=== PATIENT | female | born 2000 | race Caucasian/White ===

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

== ENCOUNTER 2021-02-07 12:16 | Emergency (ER) | payer OTHER, SELFPAY ==
[2021-02-07 12:30] VITALS: BP 104/54; PULSE 81; RESP 16; TEMP 36.8; O2SAT 96; BMI 27.4
[2021-02-07 13:17] LABS: COVID-19 Test Negative (Negative)
--- NOTE | 2021-02-07 15:15 | ED_ITS ---
HPI - URI/Sore Throat General Chief Complaint: Upper Respiratory Symptoms Stated Complaint: ?std Time Seen by Provider: 02/07/21 13:37 Source: patient Mode of arrival: ambulatory History of Present Illness HPI Narrative: 20-year-old female with no significant past medical history presenting to the ED requesting COVID-19 testing as has 2 children with URI symptoms. Patient denies symptoms at present. Denies fever, chills, cough, CP/SOB, abdominal pain, recent travel. Admits is living in [facility] where RSV has been going around Related Data Previous Rx's Medication Instructions Recorded cefixime 400 mg capsule 400 mg PO DAILY 7 Days #7 cap 10/10/20 ondansetron HCl 4 mg tablet 4 mg PO Q8H PRN #7 tab 10/10/20 (Zofran) nitrofurantoin 100 mg PO Q12H 7 Days #14 cap 11/19/20 monohydrate/macrocrystals 100 mg capsule (Macrobid) ondansetron 4 mg disintegrating 4 mg PO Q6H PRN #10 tab 11/19/20 tablet phenazopyridine 100 mg tablet 100 mg PO TID PRN #10 tab 11/19/20 (Pyridium) Allergies Allergy/AdvReac Type Severity Reaction Status Date / Time No Known Allergies Allergy Verified 11/19/20 12:58 Review of Systems Review of Systems: Constitutional: No Fever, No Chills ENT/Mouth: No Ear Pain, No Nasal Congestion, No sore throat, No Rhinorrhea Cardiovascular: No Chest Pain, No SOB Respiratory: No Cough, No Sputum, No Wheezing Gastrointestinal: No Nausea, No Vomiting, No Diarrhea, No Constipation, No Abdominal pain Genitourinary: No Dysuria, No Flank Pain Musculoskeletal: No joint pain, No Myalgias, No Joint Swelling Skin: No Skin Lesions, No rash Neuro: No Weakness Yes all other systems are reviewed and are negative PMFSH Past Medical History Attestation statement: The following information was validated with the patient. Surgical History S/P cholecystectomy Social History Social History Advance Directives: No Advance Directives Information Provided: No Physical Exam Vital Signs: Vital Signs: Last Vital Signs Temp 98.3 F 02/07/21 12:30 Pulse 81 02/07/21 12:30 Resp 16 02/07/21 12:30 BP 104/54 L 02/07/21 12:30 Pulse Ox 96 02/07/21 12:30 Body Mass Index 27.4 Const: General: cooperative, healthy appearing and no acute distress Orientation/consciousness: patient oriented x3 Limitations: no limitations HENMT: Head: Yes normal to inspection Ears: hearing grossly normal bilaterally General nose exam: Normal external nose present Face and sinus: Yes normal facial exam Eyes: General: appearance normal, both eyes and all related structures EOM: EOMs intact bilaterally Neck: Neck: Yes normal visual inspection Resp: Effort & Inspection: normal respiratory effort and no respiratory distress Auscultation: clear to auscultation bilaterally, no rales, no rhonchi and no wheezes Cardio: Rate: regular rate Heart sounds: S1 normal heart sound present and S2 normal heart sound present Skin: Rashes: no rashes Wounds: no wounds Neuro: General: patient oriented x3 Gait exam (Neuro): Normal gait present Extrem: General: Yes normal to inspection Course Course Course Narrative: COVID-19 negative MDM - URI/Sore Throat MDM Narrative Medical decision making narrative: 20-year-old female with no significant past medical history presenting to the ED requesting COVID-19 testing as has 2 children with URI symptoms. On exam vital signs stable, NAD/well-appearing, asymptomatic at present, lungs CTA. Concern for viral syndrome/COVID-19 Plan: COVID-19 testing Medical Records Attestation: I reviewed the patient's medical records. Lab Data Attestation: I reviewed the patient's lab results. Labs: Lab Results 02/07/21 Range/Units 12:47 COVID-19 (RADHA) Negative (Negative) COVID-19 Clin Com See Note Discharge Plan Discharge Clinical Impression: Normal exam Patient Disposition: Home, Self-Care Instructions: Viral Syndrome (ED) Additional Instructions: You tested negative for COVID-19. stay hydrated at home, drink plenty of fluids If he developed fever unresolved medications, symptoms persist/worsen, chest pain, or shortness breath return to the Prescriptions: No Action ondansetron HCl [Zofran] 4 mg tablet 4 mg PO Q8H PRN (Reason: nausea and vomiting) Qty: 7 RF: 0 cefixime 400 mg capsule 400 mg PO DAILY 7 Days Qty: 7 RF: 0 nitrofurantoin monohyd/m-cryst [Macrobid] 100 mg capsule 100 mg PO Q12H 7 Days Qty: 14 RF: 0 ondansetron 4 mg tablet,disintegrating 4 mg PO Q6H PRN (Reason: nausea and vomiting) Qty: 10 RF: 0 phenazopyridine [Pyridium] 100 mg tablet 100 mg PO TID PRN (Reason: pain) Qty: 10 RF: 0 Referrals: Physician,None [Primary Care Provider] - 2 days
== END 2021-02-07 15:56 | disposition home or self-care (01) ==
PROVIDERS: Emergency Provider Emergency Medicine
DX: Z03.89 Encounter for observation for other suspected diseases and conditions ruled out (principal); Z20.822 Contact with and (suspected) exposure to COVID-19
CPT/HCPCS: 36415; 87635; 99283; 99284

== ENCOUNTER 2021-03-20 12:15 | Emergency (ER) | payer OTHER, SELFPAY ==
[2021-03-20 14:16] VITALS: BP 112/63; PULSE 92; RESP 18; TEMP 37.1; O2SAT 97; BMI 28.2
[2021-03-20 15:51] LABS: Influenza A PCR NEGATIVE (Negative); Influenza B PCR NEGATIVE (Negative); Resp Syncy Virus RNA Qual PCR NEGATIVE (Negative); SARS COV2 PCR INHOUSE NEGATIVE (Negative)
--- NOTE | 2021-03-20 18:38 | ED_ITS ---
HPI - URI/Sore Throat General Chief Complaint: Upper Respiratory Symptoms Stated Complaint: COVID Symptoms Time Seen by Provider: 03/20/21 18:38 History of Present Illness HPI Narrative: Patient complains of runny goes sore throat mild diarrhea and a mild cough, she is eating and drinking comfortably, no vomiting no shortness Related Data Previous Rx's Medication Instructions Recorded cefixime 400 mg capsule 400 mg PO DAILY 7 Days #7 cap 10/10/20 ondansetron HCl 4 mg tablet 4 mg PO Q8H PRN #7 tab 10/10/20 (Zofran) nitrofurantoin 100 mg PO Q12H 7 Days #14 cap 11/19/20 monohydrate/macrocrystals 100 mg capsule (Macrobid) ondansetron 4 mg disintegrating 4 mg PO Q6H PRN #10 tab 11/19/20 tablet phenazopyridine 100 mg tablet 100 mg PO TID PRN #10 tab 11/19/20 (Pyridium) Allergies Allergy/AdvReac Type Severity Reaction Status Date / Time No Known Allergies Allergy Verified 11/19/20 12:58 Review of Systems Review of Systems: Negative for fever chills dizziness weakness fainting feeling faint headache stiff neck no shortness of breath no chest pain no abdominal pain no nausea vomiting no dysuria no skin rash Yes all other systems are reviewed and are negative [facility] Past Medical History Source: nursing notes reviewed Surgical History S/P cholecystectomy Social History Social History Alcohol intake: unknown Patient Tobacco Use Status: Tobacco use Unknown Advance Directives: No Advance Directives Information Provided: No Patient : No Physical Exam Vital Signs: Vital Signs: Last Vital Signs Temp 98.7 F 03/20/21 14:16 Pulse 92 03/20/21 14:16 Resp 18 03/20/21 14:16 BP 112/63 03/20/21 14:16 Pulse Ox 97 03/20/21 14:16 BMI result Body Mass Index 28.2 General appearance no distress The pupils equal and reactive to light the eyes no redness or discharge The pharynx is clear no redness swelling or exudate Neck is supple Respiratory no distress Chest clear to auscultation bilateral Extremities full range of motion x4 Abdomen soft nontender Course Course Course Narrative: Well-appearing patient, COVID negative is discharged MDM - URI/Sore Throat Lab Data Labs: Lab Results 03/20/21 Range/Units 14:39 Influenza Type A (PCR) NEGATIVE (Negative) Influenza Type B (PCR) NEGATIVE (Negative) RSV RNA Qual (PCR) NEGATIVE (Negative) SARS-CoV-2 RNA (RT-PCR) NEGATIVE (Negative) Discharge Plan Discharge Clinical Impression: Upper respiratory infection Patient Disposition: Home, Self-Care Additional Instructions: COVID test was negative, vital signs were normal, physical exam was normal no sign of any dangerous or serious infection now Drink plenty of fluids, Tylenol or Motrin as needed Return to the ER any time any worse condition or any concerns Prescriptions: No Action ondansetron HCl [Zofran] 4 mg tablet 4 mg PO Q8H PRN (Reason: nausea and vomiting) Qty: 7 RF: 0 cefixime 400 mg capsule 400 mg PO DAILY 7 Days Qty: 7 RF: 0 nitrofurantoin monohyd/m-cryst [Macrobid] 100 mg capsule 100 mg PO Q12H 7 Days Qty: 14 RF: 0 ondansetron 4 mg tablet,disintegrating 4 mg PO Q6H PRN (Reason: nausea and vomiting) Qty: 10 RF: 0 phenazopyridine [Pyridium] 100 mg tablet 100 mg PO TID PRN (Reason: pain) Qty: 10 RF: 0 Interventions: ED Discharge Assessment Last Done: 03/20/21 18:57 Discharge Date/Time: 03/20/21 19:01
== END 2021-03-20 19:01 | disposition home or self-care (01) ==
PROVIDERS: Emergency Provider Emergency Medicine
DX: J06.9 Acute upper respiratory infection, unspecified (principal); Z20.822 Contact with and (suspected) exposure to COVID-19
CPT/HCPCS: 0241U; 99283

== ENCOUNTER 2021-05-01 15:24 | Outpatient (REF) | payer OTHER, SELFPAY ==
[2021-05-01 15:48] LABS: COVID-19 Test Negative (Negative)
== END 2021-05-01 15:25 | disposition home or self-care (01) ==
LOC: HO.LAB 15:24
PROVIDERS: Visit Provider Internal Medicine
DX: Z20.822 Contact with and (suspected) exposure to COVID-19 (principal)
CPT/HCPCS: 87635; C9803